=== PATIENT | male | born 1965 | race Caucasian/White ===

== ENCOUNTER 2022-02-11 12:07 | Emergency (ER) | payer OTHER, SELFPAY ==
[2022-02-11 12:10] VITALS: BP 166/95; PULSE 65; RESP 18; TEMP 36.6; O2SAT 100; BMI 24.3
--- NOTE | 2022-02-11 12:18 | PC.NURSE ---
aureliano garcia, rn at
--- NOTE | 2022-02-11 12:26 | PC.NURSE ---
Animal Control at
--- NOTE | 2022-02-11 12:52 | HMH.EDGENADL ---
ED Disposition Clinical Impression: Dog bite Qualifiers: Encounter type: initial encounter Qualified Code(s): W54.0XXA - Bitten by dog, initial encounter Disposition: Home, Self-Care Condition on Discharge: Good Instructions: Animal Bites Additional Instructions: Augmentin as prescribed. Cleanse wound and apply antibiotic ointment such as Neosporin ointment daily until healed. Return to the emergency department if developing redness, fever, or pus drainage. Follow-up with animal control regarding results of quarantine. Prescriptions: Amoxicillin/Potassium Clav [Augmentin 500mg tab] 500 mg PO TID #21 tab Transmission Status: Pending to [id number] Referrals: Provider,Referral, [Primary Care Provider] - - Critical Care Critical Care Time: No Attestation: On 02/11/22, the high probability of a clinically significant, sudden or life threatening deterioration of the following system(s) required my full and direct attention, intervention and personal management. The time I documented below is in addition to time spent performing reported procedures but includes the following listed in this critical care notation. Medical Decision Making - Deven Inquiry Pt receiving controlled substance: No Vital Signs: 02/11/22 12:10 Temperature 97.8 F Temperature Source Oral Pulse Rate [Left Radial] 65 Respiratory Rate 18 Blood Pressure [Right Arm] 166/95 H Blood Pressure Mean [Right Arm] 118 Blood Pressure Source [Right Arm] Automatic Cuff Blood Pressure Position [Right Arm] Sitting 02 Sat by Pulse Oximetry 100 Oxygen Delivery Method Room Air Orders (Tests/Meds): ED MEDICATIONS Generic Name Dose Route Start Last Admin Trade Name Freq PRN Reason Stop Dose Admin Amoxicillin/Clavulanate Potassium 1 each 02/11/22 12:58 Amoxicillin/Pot Clavulan 500mg Tablet PO 02/11/22 12:59 ONCE ONE Discontinued Medications Generic Name Dose Route Start Last Admin Trade Name Freq PRN Reason Stop Dose Admin Acetaminophen 500 mg 02/11/22 12:31 02/11/22 12:34 Acetaminophen 500mg Tab PO 02/11/22 12:32 500 mg ONCE ONE Administration Tetanus/Reduced Diphtheria/Acell Pertussis 0.5 ml 02/11/22 12:31 02/11/22 12:34 Tet/Diphth/Pert-Adult 0.5ml Syringe IM 02/11/22 12:32 0.5 ml .ONCE ONE Administration General Adult HPI - General Chief complaint: Animal Bite Stated complaint: AO 02/11/22 Dog bite Time Seen by Provider: 02/11/22 12:52 Mode of Arrival: Ambulatory Limitations: No Limitations Description of Symptoms (Recalled from ER Triage Doc. by RN): c/o dog bite on right buttock. Pt states he was running in his neighborhood and passed by the pit bull and at first he just followed him barking at him, once he was running back past the location of incident the pitbull bite his buttock. Pt denies any other areas of injury at this time. Abrasion noted on right buttock. - History of Present Illness HPI narrative: Patient states that he was running and was bit by a pit bull on his buttock. The dog is reportedly not up-to-date on immunizations, but the dog is in a position of animal control and will be quarantined. - Related Data Previous Rx's Medication Instructions Recorded Amoxicillin/Potassium Clav 500 mg PO TID #21 tab 02/11/22 [Augmentin 500mg tab] Allergies Allergy/AdvReac Type Severity Reaction Status Date / Time No Known Allergies Allergy Verified 02/11/22 12:30 [facility] History - Hepatitis A Screen Attestation statement:: This patient has been screened for Hepatitis A risk factors. I have reviewed the patient's past medical history: Yes ROS Obtained: Yes Systems reviewed as appropriate & no additional complaints - Constitutional Constitutional: Denies fever(s) - Integumentary/Breasts Skin/Breast: Reports as per HPI, Reports wounds - Neurologic Neurologic: Denies numbness, Denies weakness Physical Exam - General General appea
--- NOTE | 2022-02-11 12:54 | PC.NURSE ---
ED MD at
--- NOTE | 2022-02-11 13:28 | PC.NURSE ---
CLEANSED WOUND WITH HIBACLEANSE AND PLACE NON ADHESIVE AND TEGADERM OVER WOUND AREA. PT TOLERATED WELL. INSTRUCTED PT HOW TO DO THIS AT HOME. AT BS
[2022-02-11 13:29] VITALS: BP 150/88; PULSE 60; RESP 16; TEMP 36.6; O2SAT 100
== END 2022-02-11 13:31 | disposition home or self-care (01) ==
PROVIDERS: Emergency Provider Emergency Medicine
DX: S31.813A Puncture wound without foreign body of right buttock, initial encounter (principal); W54.0XXA Bitten by dog, initial encounter; Z23 Encounter for immunization
CPT/HCPCS: 90715; 99282